=== PATIENT | female | born 1975 | race Caucasian/White ===

== ENCOUNTER → 2017-01-29 | Outpatient (CLI) | payer BC ==
[~2017-01-29] MED LIST: CHOL200010 PO; CYAN10005 PO; MULTTAB58 PO; OXYC-57 PO; WARF2TAB PO
--- NOTE | 2017-01-29 11:12 | DIAGNOSTIC IMAGING REPORT ---
RIGHT PELVIS UNILATERAL HIP 1 VIEW CLINICAL HISTORY: Right hip pain. COMPARISON: Pelvis and right hip radiograph October 05, 2016. FINDINGS: Alignment of the total right arthroplasty is anatomic. There is no periprosthetic fracture or lucency. Several ossific densities adjacent to the proximal right femur reflects heterotopic ossification which has developed. There is mild to moderate arthritis of the left hip. IMPRESSION: 1. Status post total right hip arthroplasty. Hardware intact with no periprosthetic fracture or lucency. 2. Mild heterotopic ossification adjacent to the proximal right femur. Electronically signed by: Trever Rojas M.D. 01/29/2017 11:10 AM Dictated Date/Time: 01/29/2017 11:09 AM
== END | disposition home or self-care (01) ==
LOC: C.RDSM 11:00
PROVIDERS: ATTEND Physician Assistant
DX: M25.551 Pain in right hip (principal)

== ENCOUNTER → 2017-08-23 | Outpatient (CLI) | payer BC ==
[~2017-08-23] MED LIST changes: -OXYC-57 PO; -WARF2TAB PO
== END | disposition home or self-care (01) ==
LOC: C.RDSM 15:26
PROVIDERS: ATTEND Physical Medicine & Rehabilitation Sports Medicine
DX: Z96.641 Presence of right artificial hip joint (principal)

== ENCOUNTER → 2018-05-23 | Outpatient (CLI) | payer BC | END | disposition home or self-care (01) | LOC: C.RDSM 10:11 | PROVIDERS: ATTEND Physical Medicine & Rehabilitation Sports Medicine | DX: Z96.643 Presence of artificial hip joint, bilateral (principal) ==

== ENCOUNTER 2021-03-19 05:11 | Observation (INO) ==
--- NOTE | 2021-03-03 08:47 | PAT Medication Instructions ---
Medication Instructions Date of Service March 03, 2021 Home Medications cholecalciferol (vitamin D3) [Vitamin D3] 25 mcg PO QPM ibuprofen [Advil] 600 mg PO Q6H PRN metoprolol succinate [Toprol XL] 25 mg PO QPM vitamin B complex [B Complex] 1 cap PO QPM ASK your surgeon for instructions ibuprofen [Advil] 600 mg PO Q6H PRN Take evening before surgery cholecalciferol (vitamin D3) [Vitamin D3] 25 mcg PO QPM metoprolol succinate [Toprol XL] 25 mg PO QPM vitamin B complex [B Complex] 1 cap PO QPM Other Notes If you have any questions please call us at [phone] or [phone] or [phone] or [phone]
--- NOTE | 2021-03-03 17:23 | History & Physical Report ---
Date of Service March 03, 2021 Assessment & Plan (1) Degenerative joint disease of left hip: Postoperative prescriptions for Percocet and Coumadin will be provided at discharge from the hospital. Anticipate discharge to home with home health services. Preadmission testing for lab work, EKG, and chest x-ray has been scheduled for next week. 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 She will see her PCP for clearance as well. She already has her cane and walker at home from the previous surgery. She is currently asymptomatic of any COVID- 19 symptoms. She is aware of the COVID-19 risks associated with surgery. She will obtain nasal swab testing within 4 days prior to surgery. PDMP was checked and there are no concerning findings. History of Present Illness Chief Complaint: Left hip pain Primary Care Provider: NO PCP This 45-year-old female presents for her preoperative history and physical. She is scheduled to undergo a left total hip arthroplasty on 03/19/2021. The patient has had a longstanding history of left hip pain. Symptoms have been ongoing for almost 20 years. She has had multiple rounds of physical therapy as well as intraarticular injections and oral anti-inflammatories without lasting relief. She has difficulty with activities of daily living. Pain is worse with weightbearing. She notes it is affecting her ability to exercise. No numbness or tingling. She notes some loss of motion secondary to pain. The patient has a history of previous right total hip arthroplasty 08/19/2016 and has done well with that. She elects to proceed with the same on the left. Preoperative imaging has been obtained. Allergies Allergy/AdvReac Type Severity Reaction Status Date / Time No Known Allergies Allergy Verified 02/25/21 12:14 Home Medications Medication Instructions Recorded Confirmed Type cholecalciferol (vitamin D3) 25 mcg PO QPM 02/25/21 02/25/21 History [Vitamin D3] ibuprofen [Advil] 600 mg PO Q6H PRN 02/25/21 02/25/21 History metoprolol succinate [Toprol XL] 25 mg PO QPM 02/25/21 02/25/21 History vitamin B complex [B Complex] 1 cap PO QPM 02/25/21 02/25/21 History Past Med/Surg History Medical History (Updated 03/03/21 @ 17:22 by Danish D. Sefchick, PA-C) Anxiety Cardiac murmur HAS BEEN HEARD SOMETIMES Robb's disease F/U [facility] Left bundle branch block F/U DR PAUL LARA Surgical History (Updated 02/25/21 @ 12:23 by Joellen Malik, RN) History of cardiac cath [facility] ST[facility] History of section X 2 History of cholecystectomy History of colonoscopy History of esophagogastroduodenoscopy (EGD) History of total hip arthroplasty RIGHT Family History (Updated 02/25/21 @ 12:24 by Joellen Malik, RN) Grandmother (Maternal) Family hx of colon cancer Grandfather (Maternal) Family hx of colon cancer Social History (Updated 02/25/21 @ 12:43 by Joellen Malik, JAYESH) Smoking Status: Never smoker Second Hand Exposure: No; Hx Alcohol Use: Yes Alcohol type: wine Hx Substance Use: No Preferred Language: [place] Communication Ability: Effective 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 Physical Exam Physical Exam: Vitals: Height 166 cm, weight 94.7 kilograms, BMI 34.4, temperature 36.1, BP 142/88, pulse 88, O2 sat 98% on room air. General: Well-developed, well-nourished, middle-aged female in no acute distress. Sitting in a chair. Alert and oriented. Skin: Warm and dry with good turgor. No rashes or lesions. No ecchymosis or erythema. HEENT: Normocephalic, atraumatic. Eyes: PERRLA, EOMI. Nares and oropharynx exams deferred due to COVID precautions. Heart: Soft systolic ejection murmur noted at the left sternal border. No gallops or rubs. Lungs: Clear to auscultation bilaterally, no crackles, rhonchi or wheezing, good air movement. Abdomen: Mildly obese, bowel sounds present x4, soft, nontender. No organomegaly. No masses. Musculoskeletal: Left hip has no obvious asymmetry or deformity. She has no discomfort with palpation over the greater trochanter or lateral hip. There is pain in the anterior flexion crease. Hip flexion to around 100 degrees before significant discomfort. External rotation of around 20 degrees, internal rotation to neutral. No crepitus is palpable. She ambulates with a slightly antalgic gait. Strength is 5/5 for resisted hip flexion as well as abduction. Neurologic: Gross sensation is intact across the lower extremities by soft touch. Peripheral pulses are 2+. Results & Data Results & Data ([facility]) Diagnostic Findings Radiographic imaging obtained today of the hip shows endstage DJD, periarticular osteophytes, subchondral sclerosis, and joint space narrowing are all present.
--- NOTE | 2021-03-04 16:02 | Anesthesiology Consultation ---
Date of Service March 04, 2021 Assessment & Plan (1) Encounter for pre-operative examination: - COVID screening: Per assessment on 03/04: Travel screen negative, no known COVID-19 positive contacts or current COVID-19 related symptoms. 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 Follows COVID precaution guidelines. Patient fully vaccinated. Surgeon arranging preop COVID testing. Awaiting results. - Cardiology note (02/18/21): "Based on the results of the nuclear stress test performed 02/12/2021.. Cardiac Clearance: Low cardiac risk." Chart Review Chart Review: Acceptable Risk for Surgery and Patient seen in Pre Admission Testing Teaching & Discussion Pre-Anesthesia Teaching/Discussion Notes: Instructed NPO after midnight before surgery,except medications with 15 cc of water. Medication instructions provided according to the PAT guidelines. History Surgery Operation Date: 03/19/21 07:15 Proposed Procedures p Left Total Hip Arthroplasty - Craig Montiel MD Height/Weight Height: 5 ft 6 in Weight: 94.3 kg Allergies Allergy/AdvReac Type Severity Reaction Status Date / Time No Known Allergies Allergy Verified 02/25/21 12:14 Medications Home Medications Medication Instructions Recorded Confirmed Last Taken cholecalciferol (vitamin D3) 25 mcg PO QPM 02/25/21 02/25/21 Unknown [Vitamin D3] ibuprofen [Advil] 600 mg PO Q6H PRN 02/25/21 02/25/21 Unknown metoprolol succinate [Toprol XL] 25 mg PO QPM 02/25/21 02/25/21 Unknown vitamin B complex [B Complex] 1 cap PO QPM 02/25/21 02/25/21 Unknown Past Medical History Medical History (Updated 03/04/21 @ 16:23 by Valarie Cabrales) Anxiety CAD (coronary artery disease) Very mild nonobstructive epicardial CAD per 2018 cardiac cath Robb's disease Euthyroid, thyroid levels under surveillance by endocrine (Dr. Trisha Mo[facility]) Left bundle branch block Follows with Dr. Holder Obesity Exercise / Class Metabolic Activity II 4-5 Yardwork/Stairs/Walk up hill (one flight of stairs (no chest pain/no sob)) Past Family History Family History Grandmother (Maternal) Family hx of colon cancer Grandfather (Maternal) Family hx of colon cancer Past Surgical History Surgical History History of cardiac cath ([facility]) > no stents History of section x2 History of cholecystectomy History of colonoscopy History of esophagogastroduodenoscopy (EGD) History of total hip arthroplasty Right Past Anesthesia History No Hx of Anesthesia Complications and No Family Hx of Anesthesia Complications History of PONV No Hx of PONV and No Hx of Motion Sickness Social History Smoking Status: Never smoker Do You Dip or Chew Tobacco: No Hx Alcohol Use: Yes Alcohol type: wine alcohol intake frequency: a few times a month Hx Substance Use: No Review of Systems Patient denies chest pain, shortness of breath, dyspnea on exertion, fever, chills, cough, wheezing, palpitations. Physical Exam Vital Signs VITALS BP 140/92 P 84 TEMP 98.5 SP02 98%RA RESP 16 PHYSICAL Full cervical extension range of motion. Full TMJ range of motion. TMD 3 finger breaths Mallampati Score 2 Dentition: intact, upper front bridge Lungs: clear throughout to auscultation Cardiac: regular rate and rhythm, no murmurs noted Spine: normal Carotid arteries: negative bruit Extremities: no edema Testing Laboratory Results 03/04/21 16:22 03/04/21 16: PT 10.3 Seconds (9.0-12.0) 03/04/21 16: INR 1.0 (0.9-1.1) 03/04/21 16: APTT 25.9 Seconds (21.0-31.0) 03/04/21 16: Urine Color Yellow 03/04/21 16:22 Urine Appearance Clear (Clear) 03/04/21 16: Urine pH 5.0 (4.5-7.5) 03/04/21 16: Ur Specific [place] 1.020 (1.000-1.030) 03/04/21 16: Urine Protein Negative (Negative) 03/04/21 16: Urine Glucose (UA) Negative (Negative) 03/04/21 16: Urine Ketones Negative (Negative) 03/04/21 16: Urine Nitrite Negative (Negative) 03/04/21 16: Ur Leukocyte Esterase Negative (Negative) 03/04/21 16:22 Urine RBC 5-10 /hpf (0-4) H 03/04/21 16:22 Urine WBC 5-10 /hpf (0-5) H 03/04/21 16:22 Ur Epithelial Cells 5-10 /lpf (0-5) H 03/04/21 16:22 Blood Type O Positive 03/04/21 16:22 Antibody Screen NEGATIVE 03/04/21 16:22 Electrocardiogram Date: 01/21/21 Sinus rhythm at 82 bpm. Horizontal axis. Anterior septal infarct. Possible LBBB. Chest X-Ray Date: 03/04/21 FINDINGS: The lungs are clear. Cardiac silhouette is normal in size. No pleural effusions. No pneumothorax. Mild degenerative changes within the thoracic spine. Prior cholecystectomy. IMPRESSION: No acute process. Echocardiogram Date: 02/12/21 LVEF 55%. No regional wall motion abnormality. No significant valvular disease. Stress Test Date: 02/12/21 LVEF 62%. Based upon EKG criteria, this is nondiagnostic. Based upon nuclear imaging findings there is no evidence of myocardial ischemia or infarction. Study is "normal ." Cardiac Catheterization Date: 01/27/18 Very mild nonobstructive epicardial CAD. Maximum medical therapy and risk modification recommended.
[2021-03-04 16:44] LABS: Basophils # (auto) 0.03 K/uL (0-0.2); Basophils % (auto) 0.5 %; Eosinophils # (auto) 0.15 K/uL (0-0.5); Eosinophils % (auto) 2.3 %; Hematocrit (blood only) 41.3 % (37-47); Hemoglobin 13.7 g/dL (12.0-16.0); Immature Granulocytes # (auto) 0.01 K/uL (0.00-0.02); Immature Granulocytes % (auto) 0.2 %; Lymphocytes # (auto) 2.39 K/uL (1.2-3.4); Lymphocytes % (auto) 36.5 %; Mean Corpuscular Hemoglobin 28.8 pg (25-34); Mean Corpuscular Hgb Conc 33.2 g/dL (32-36); Mean Corpuscular Volume 86.8 fL (80-100); Mean Platelet Volume 11.8 fL (7.4-10.4); Monocytes # (auto) 0.44 K/uL (0.11-0.59); Monocytes % (auto) 6.7 %; Neutrophils # (auto) 3.53 K/uL (1.4-6.5); Neutrophils % (auto) 53.8 %; Platelet Count 208 K/uL (130-400); RDW Coefficient of Variation 12.4 % (11.5-14.5); RDW Standard Deviation 39.6 fL (36.4-46.3); Red Blood Count 4.76 M/uL (4.2-5.4); White Blood Count 6.55 K/uL (4.8-10.8)
--- NOTE | 2021-03-04 16:47 | XRay Report ---
XR chest Pre-admission PA/Lat HISTORY: Preop. Joint pain. COMPARISON: None. FINDINGS: The lungs are clear. Cardiac silhouette is normal in size. No pleural effusions. No pneumot horax. Mild degenerative changes within the thoracic spine. Prior cholecystectomy. IMPRESSION: No acute process. ACT 112: Negative or not required by law. Electronically signed by: Tavo Avila M.D. 03/04/2021 4:45 PM
[2021-03-04 16:53] LABS: BUN Creatinine Ratio 18.6 (10-20); Calcium 9.3 mg/dl (8.5-10.1); Creatinine Clr Calc Pharmacy 120.4 ml/min; Est GFR (African American) 122.7 ml/min; Est GFR (Non-African American) 105.9 ml/min
[2021-03-04 16:57] LABS: Appearance Urine Clear (Clear); Bilirubin Urine Negative (Negative); Blood Urine 2+ (Negative); Color Urine Yellow; Glucose Urine UA Negative (Negative); Ketones Urine Negative (Negative); Leukocyte Esterase Urine Negative (Negative); Nitrite Urine Negative (Negative); Protein Urine Negative (Negative); Urobilinogen Urine Negative (Negative)
[2021-03-04 17:00] LABS: Partial Thromboplastin Time 25.9 Seconds (21.0-31.0); Prothrombin Time 10.3 Seconds (9.0-12.0)
[2021-03-04 17:28] LABS: Bacteria Urine 2+ (Negative)
[2021-03-19] MEDS ORDERED: TRANEXAMIC ACID 1,000 MG **IV Pre-op IV SCH (06:00)
[2021-03-19] MEDS ORDERED: ROPIVACAINE 0.5% HCL/PF 150 MG, BUPIVACAINE 0.75% MPF 20 ML, EPINEPHrine 0.15 MG, Ketor... INFIL SCH (06:00)
[2021-03-19] MEDS ORDERED: LR 500ML BOLUS, THEN 15ML/HR IV SCH (06:00)
[2021-03-19] MEDS ORDERED: LR 60ML/HR IV SCH (06:00)
[2021-03-19] MEDS ORDERED: ceFAZolin 2000MG 2,000 MG/15 ML SYR IV SCH (06:00)
--- NOTE | 2021-03-19 06:21 | History & Physical Bridge Note ---
Date of Service March 19, 2021 History & Physical Bridge Note I have examined the patient, reviewed the History & Physical and in the interval since the performance of the History & Physical I have noted the following changes of clinical significance: consent ontained/site verified/covid screen negative.no changes noted
[2021-03-19] MEDS ORDERED: BUPIVACAINE 0.5 % 5 MG/1 ML PF 10ML VIAL ONE (06:23)
[2021-03-19] MEDS ORDERED: ATROPINE SULFATE 0.1 MG/ML 10ML SYR IV PRN (06:27)
[2021-03-19] MEDS ORDERED: ONDANSETRON INJ 2 MG/ML 2 ML VIAL IV PRN ×2 (06:27→10:48)
[2021-03-19] MEDS ORDERED: fentaNYL citrate 100 MCG/2 ML VIAL IV PRN (06:27)
[2021-03-19] MEDS ORDERED: ePHEDrine sulfate 50 MG/ML AMP IV PRN (06:27)
[2021-03-19] MEDS ORDERED: fentaNYL citrate 100 MCG/2 ML VIAL ONE (06:29)
[2021-03-19] MEDS ORDERED: LIDOCAINE 2% 2 ML VIAL/AMP(20MG/ML) INFIL ONE (06:29)
[2021-03-19] MEDS ORDERED: PROPOFOL IV EMULSION 10 MG/ML 20 ML VIAL IV ONE ×4 (06:29→10:55)
[2021-03-19] MEDS ORDERED: ORTHO JOINT ANESTHETIC ONE (06:29)
[2021-03-19] MEDS ORDERED: MIDAZOLAM HCL 1 MG/ML 2ML VIAL ONE (06:29)
[2021-03-19] MEDS ORDERED: ONDANSETRON INJ 2 MG/ML 2 ML VIAL ONE (08:03)
--- NOTE | 2021-03-19 08:37 | Operative Report ---
Post Operative Report Pre & Post Diagnosis Operation Date: 03/19/21 07:00 Pre-Op Diagnosis: Left Hip Degenerative Joint Disease Post-Op Diagnosis: Left Hip Degenerative Joint Disease I identified the patient and participated in the time-out.: Yes Procedure Operation Date: 03/19/21 07:00 Actual Procedures p Left Total Hip Arthroplasty--Uncemented(Left) - Craig Montiel MD Surgeon DAWSON Montiel MD [place]r Operator Sherman DUDLEY Estimated Blood Loss 50 Findings Consistent with Post-Op Diagnosis Specimens see operative report Drains none Complications none Disposition Accompanied Patient To Recovery: Yes Disposition: Recovery Room Indications This 45-year-old female presented to the office with complaints of persisting left hip pain. She had tried conservative care measures without improvement. She elected to proceed with surgical intervention after being educated about potential risks and outcomes. She has a history of previous right total hip arthroplasty and has done well with it. She desired the same on the left. Preoperative imaging was obtained. Description of Procedure Patient was administered a spinal anesthetic and then taken to the operating room where she was given sedation. She was prepped and draped in the usual sterile fashion. Please see Dr. Montiel's operative report for specifics of the procedure. I was present for the entire case from initial patient positioning through final wound closure. Assistance was provided in tissue retraction, hemostasis, trial implant placement, final implant placement, and final wound closure. Patient was taken to the recovery room in satisfactory condition. I attest to the content of the Intraoperative Record and any orders documented therein. Any exceptions are noted below.
[2021-03-19] MEDS ORDERED: VANCOMYCIN HCL 1,500 MG in SODIUM CHLORIDE 0.9% 250 ML IV SCH (08:45)
--- NOTE | 2021-03-19 08:52 | XRay Report ---
XR pelvis 1-2V routine HISTORY: 45 years-old Female S/P LTHA left hip total joint arthroplasty COMPARISON: Pelvis and hip radiographs 02/27/2021 TECHNIQUE: AP view of the pelvis FINDINGS: Unchanged right hip total joint arthroplasty. Left hip total joint arthroplasty appears to be in sati sfactory alignment. No acute fracture or unexpected opaque foreign body. Lateral left hip skin staple s are present along with expected postsurgical soft tissue swelling with deep tissue air. IMPRESSION: Left hip total joint arthroplasty with expected postoperative changes. ACT 112: Negative or not required by law. The above report was generated using voice recognition software. It may contain grammatical, syntax o r spelling errors. Electronically signed by: Tesfaye Mitchell M.D. 03/19/2021 8:51 AM
--- NOTE | 2021-03-19 08:58 | Operative Report (OR) ---
DATE OF OPERATION: 03/19/2021 SURGEON: Craig Montiel MD. WATCH CASE POLISHER: Danish Whitaker PA-C. No resident or fellow available. PREOPERATIVE DIAGNOSES: Osteoarthritis with hip dysplasia, left hip. POSTOPERATIVE DIAGNOSES: Osteoarthritis with hip dysplasia, left hip. OPERATION PERFORMED: Noncemented left total hip replacement. SUMMARY OF IMPLANTS: Size 3 high offset femur, size 52 acetabular shell sector cup hole eliminator, 6.5 x 25 screw, 36 x 52 neutral liner and 36, +5 ceramic head. Again, it was a high offset size 3 femoral stem. ESTIMATED BLOOD LOSS: 50 mL. CRYSTALLOID: 1700 mL. DVT prophylaxis per protocol. BONE PATHOLOGY: Pending on resection. PERIOPERATIVE SITUATION: Medically cleared female with intractable hip pain. Physical exam and x-rays consistent with severe disease and dysplasia. She wants to proceed with surgical treatment, had an opposite side done years ago, did well. She understands the risks and consequences and no guarantees. DESCRIPTION OF PROCEDURE: The patient was appropriately identified, site verified, consent verified. Antibiotics confirmed as being given. The left lower extremity was prepped and draped in usual routine fashion with the patient in right lateral decubitus position. Posterior approach to the hip was made. Sharp dissection carried through skin and blunt dissection down to the fascia. This was then incised under direct vision. Retractors placed. Care taken to protect the sciatic nerve. The short external rotators identified were released and preserved. The capsule was T'd and preserved. The hip was then dislocated. The femoral neck was resected. There was a significant labral pathology with a large labral cyst anteriorly. This was all resected. Serial reaming carried up to a 52 and a 52 cup impacted into appropriate anteversion and inclination. Trial liner was then seated. Minor osteophytes removed posteriorly. The femur was then flexed and internally rotated. The proximal femur prepared with a rongeur sample box maker, canal finder, lateralizing rasp, and serial broaching up to a size 3. Trial reduction with a +5 head gave leg lengths to be within 1 mm-2 mm of symmetry and the hip was in excellent stability with both flexion and internal rotation of 90-100 degrees and internally rotated 30-40 degrees. The hip was then dislocated. The wound irrigated. All remaining trial elements were removed. The hole eliminator seated, the permanent liner seated, the permanent head and stem seated and then the hip stability checked one more time and everything was excellent. It was then irrigated one final time. Leg lengths were excellent. The capsule was then closed with #2 Vicryl, the short external rotators the same, deep fascia the same, deep fat the same. Orthomix then injected into superficial layer. Superficial layer and then closed with 2-0 nylon and perez. Appropriate dressing applied. The patient transferred to recovery room in satisfactory condition having tolerated the procedure well. I attest to the content of the Intraoperative Record and any orders documented therein. Any exception s are noted below.
[2021-03-19] MEDS ORDERED: VANCOMYCIN HCL 1,500 MG in SODIUM CHLORIDE 0.9% 500 ML IV SCH (09:00)
--- NOTE | 2021-03-19 09:08 | Anesthesiology Progress Note ---
Date of Service March 19, 2021 Anesthesia Post Procedure Vital Signs Vital Signs: Temp Pulse Pulse Resp BP BP Pulse Ox 03/19/21 09:05 73 14 119/83 100 03/19/21 08:55 71 14 106/73 99 03/19/21 08:45 73 16 133/93 100 03/19/21 08:35 97.0 F L 79 14 131/61 99 03/19/21 06:24 150/93 H 03/19/21 05:31 98.1 F 83 16 141/101 H 98 Pain Intensity Left Hip: Pain Intensity: 2 Transfer of Care Handoff Completed per policy Notes Mental Status: alert / awake / arousable and participated in evaluation Patient Amnestic to Procedure: Yes Nausea / Vomiting: adequately controlled Pain: adequately controlled Airway Patency, RR, SpO2: stable & adequate BP & HR: stable & adequate Hydration State: stable & adequate Neuraxial Anesthesia: was administered and sensory block is resolving Anesthetic Complications: no major complications apparent and Pt Satisfied with anesthetic care
[2021-03-19] MEDS ORDERED: METOCLOPRAMIDE HCL INJ 5 MG/ML 2 ML VIAL IV PRN (10:48)
[2021-03-19] MEDS ORDERED: diphenhydrAMINE 50 MG/ML VIAL IV PRN (10:48)
[2021-03-19] MEDS ORDERED: HYDROmorphone INJ 0.5 MG/0.5 ML SYR IV PRN (10:48)
[2021-03-19] MEDS ORDERED: bisacodyL 10 MG SUPP PR PRN (10:48)
[2021-03-19] MEDS ORDERED: MAGNESIUM HYDROXIDE SUSP 30 ML UDC PO PRN (10:48)
[2021-03-19] MEDS ORDERED: NALOXONE HCL 0.4 MG/1 ML VIAL/CARP IV PRN (10:48)
[2021-03-19] MEDS ORDERED: ALUMINUM/MAGNESIUM SUSP 30 ML UDC PO PRN (10:48)
[2021-03-19] MEDS: SODIUM CHLORIDE 0.9% 1000ML 1,000 ML IV SCH ×2 (11:54→21:49)
[2021-03-19] MEDS: KETOROLAC 30 MG/ML VIAL IV SCH ×3 (11:54→23:05)
--- NOTE | 2021-03-19 12:42 | Progress Notes ---
DATE: 03/19/2021 SUBJECTIVE: Postop check, status post left total hip replacement. The patient is sitting up in bed, comfortable. She denies any chest pain, shortness of breath, fever, chills, nausea, vomiting or headache. OBJECTIVE: Vital signs are stable. She is afebrile. Wound dressing clean, dry and intact. The femoral sciatic nerve functioning is restored after the block, still has some minor weakness, but has excellent demonstration that her nerves are working well. Postop x-rays look excellent. ASSESSMENT: Doing well. Continue with postoperative care pathway. Discharge to home tomorrow. Weightbearing as tolerated. DVT prophylaxis with Coumadin.
--- NOTE | 2021-03-19 13:09 | Discharge Summary (DS) ---
CHIEF COMPLAINT: Left hip pain. HISTORY OF PRESENT ILLNESS: The patient underwent elective left total hip replacement. Her hospital course has been uneventful to date. Longstanding pain, has dysplasia of her hip, had a hip replacement done on the other side, did well and wants this side. This is the left. PAST MEDICAL AND PAST SURGICAL HISTORY: Remarkable for cardiac murmur, anxiety, Robb's disease, left bundle branch block, history of cardiac cath, cholecystectomy, colonoscopy, EGDs, right total hip replacement. FAMILY HISTORY: Remarkable for colon cancer on both maternal sides. SOCIAL HISTORY: Reveals she does not smoke. Only social alcohol. She lives with her spouse. Feels safe at home. REVIEW OF SYSTEMS: Reveals no chest pain, shortness of breath, fever, chills, nausea, vomiting or headache. Postop x-rays look excellent. ASSESSMENT: Doing well status post hip replacement. Discharge to home with home services tomorrow if she does well overnight.
[2021-03-19] MEDS: ACETAMINOPHEN 500 MG TAB PO SCH ×2 (14:20→21:06)
[2021-03-19] MEDS: DOCUSATE SODIUM 100 MG CAP PO SCH ×2 (14:20→21:06)
[2021-03-19] MEDS: MULTIVITAMIN TAB PO SCH (14:21)
[2021-03-19] MEDS: ceFAZolin 2000MG 2,000 MG/15 ML SYR IV SCH ×2 (14:29→21:11)
[2021-03-19] MEDS ORDERED: TRANEXAMIC ACID / 0.7% NACL 1,000 MG/100 ML BAG IV SCH (14:45)
[2021-03-19] MEDS: ORTHO WARFARIN NOMOGRAM SCH (15:21)
[2021-03-19] MEDS: oxyCODONE HCL IR 5 MG TAB (IMMEDIATE RELEASE) PO PRN (15:53)
[2021-03-19] MEDS ORDERED: WARFARIN SOD 5 MG TAB PO SCH (16:00)
[2021-03-19] MEDS: ASCORBIC ACID 500 MG TAB PO SCH (18:09)
[2021-03-19] MEDS: FERROUS GLUCONATE 324 MG TAB PO SCH (18:09)
[2021-03-19] MEDS ORDERED: SENNA 8.6 MG TAB PO SCH (21:00)
[2021-03-19] MEDS ORDERED: METOPROLOL SUCC 25MG EXT REL TAB PO SCH (21:00)
[2021-03-19] MEDS ORDERED: Nursing to Pharmacy Communication SCH (21:15)
[2021-03-20] MEDS: oxyCODONE HCL IR 5 MG TAB (IMMEDIATE RELEASE) PO PRN ×2 (00:29→12:19)
[2021-03-20] MEDS: ACETAMINOPHEN 500 MG TAB PO SCH (05:35)
[2021-03-20] MEDS: KETOROLAC 30 MG/ML VIAL IV SCH (05:35)
[2021-03-20 06:35] LABS: Basophils # (auto) 0.02 K/uL (0-0.2); Basophils % (auto) 0.2 %; Eosinophils % (auto) 1.1 %; Hematocrit (blood only) 34.3 % (37-47); Immature Granulocytes # (auto) 0.02 K/uL (0.00-0.02); Immature Granulocytes % (auto) 0.2 %; Lymphocytes # (auto) 1.72 K/uL (1.2-3.4); Lymphocytes % (auto) 18.6 %; Mean Corpuscular Hemoglobin 28.2 pg (25-34); Mean Corpuscular Hgb Conc 32.1 g/dL (32-36); Mean Corpuscular Volume 87.9 fL (80-100); Mean Platelet Volume 11.6 fL (7.4-10.4); Monocytes # (auto) 0.93 K/uL (0.11-0.59); Neutrophils # (auto) 6.47 K/uL (1.4-6.5); Neutrophils % (auto) 69.9 %; Platelet Count 166 K/uL (130-400); RDW Coefficient of Variation 12.8 % (11.5-14.5); RDW Standard Deviation 41.3 fL (36.4-46.3); White Blood Count 9.26 K/uL (4.8-10.8)
[2021-03-20 07:01] LABS: BUN Creatinine Ratio 16.4 (10-20); Calcium 8.2 mg/dl (8.5-10.1); Creatinine Clr Calc Pharmacy 125.9 ml/min; Est GFR (African American) 124.5 ml/min; Est GFR (Non-African American) 107.4 ml/min; Potassium 3.7 mmol/L (3.5-5.1)
[2021-03-20 07:04] LABS: INR 1.2 (0.9-1.1); Prothrombin Time 11.9 Seconds (9.0-12.0)
[2021-03-20] MEDS ORDERED: dexAMETHasone 10 MG in SYRINGE 0 ML IV SCH (08:00)
--- NOTE | 2021-03-20 08:36 | Progress Notes ---
DATE: 03/20/2021 SUBJECTIVE: Postop day #1 status post left total hip replacement. The patient is doing well. Denies any chest pain, shortness of breath, fever, chills, nausea, vomiting or headache. OBJECTIVE: Vital signs are stable. She is afebrile. Neurovascular check femoral sciatic nerve is normal. Wound dressing clean, dry and intact. ASSESSMENT: Doing well status post left total hip replacement. Discharge to home today. Discharge on Coumadin, keep INR 1.8-2.2.
[2021-03-20] MEDS: MULTIVITAMIN TAB PO SCH (08:47)
[2021-03-20] MEDS: DOCUSATE SODIUM 100 MG CAP PO SCH (08:47)
[2021-03-20] MEDS: FERROUS GLUCONATE 324 MG TAB PO SCH (08:47)
[2021-03-20] MEDS: ASCORBIC ACID 500 MG TAB PO SCH (08:47)
[2021-03-20] MEDS: ORTHO WARFARIN NOMOGRAM SCH (09:47)
[2021-03-20] MEDS ORDERED: WARFARIN SOD 5 MG TAB PO SCH (10:00)
== END 2021-03-20 12:39 | disposition home health service (06) ==
LOC: 3E 05:11 → ASU 05:11